=== PATIENT | female | born 1990 | race Caucasian/White ===

== ENCOUNTER 2019-10-31 15:14 | Emergency (ER) | payer OTHER, SELFPAY ==
--- NOTE | ~2019-10-31 | XR_ITS ---
EXAMINATION: XR chest 2V DATE: 10/31/2019 16:10 INDICATION: Mid chest pain. TECHNIQUE: Frontal and lateral views of the chest were obtained. COMPARISON: None. FINDINGS: The chest demonstrates clear lungs without pneumonia, pleural effusion, or pneumothorax. Th e heart size is normal. IMPRESSION: 1. No acute cardiopulmonary disease. Reviewed, dictated and finalized at location A. [employer]
[2019-10-31 15:23] VITALS: BP 99/70; PULSE 104; RESP 18; TEMP 37.2; O2SAT 100
[2019-10-31 15:27] VITALS: PULSE 99
--- NOTE | 2019-10-31 15:42 | ED.CHESTPAIN ---
HPI - Chest Pain General Chief Complaint: Chest Pain Stated Complaint: cold symptoms Time Seen by Provider: 10/31/19 15:41 Source: patient Mode of arrival: ambulatory Limitations: no limitations History of Present Illness HPI narrative: A 28 y/o female presents to the ED with c/o right sided CP. Pt states that on 10/29/19 she was diagnosed with Influenza B at an urgent care. She notes that she was prescribed Tamiflu and has been complaint with the medication since. Pt adds that last night she started to have the right sided CP, cough, and SOB. She reports that she was unable to sleep last night due to the right sided CP. Pt has been taking Ibuprofen for body aches as well. She has no other complaints at this time. MD complaint: chest pain (Right sided) Onset (ago): day(s) (1) Timing of current episode: constant Pain location: right chest Context: recent illness (Influenza B) Associated symptoms: dyspnea, cough and other (Body aches) Treatment prior to arrival: other (Tamiflu, Ibuprofen) Related Data Home Medications Medication Instructions Recorded Confirmed albuterol sulfate 1 puff INHALATION QID PRN 10/31/19 benzonatate 10/31/19 oseltamivir [Tamiflu] 10/31/19 10/31/19 Allergies Allergy/AdvReac Type Severity Reaction Status Date / Time No Known Allergies Allergy Verified 10/31/19 15:28 Review of Systems Review of Systems: All systems reviewed & are unremarkable except as noted in HPI and below Constitutional: Constitutional: Reports body ache(s) Cardiovascular: Cardiovascular: Reports chest pain (Right sided) Respiratory: Respiratory: Reports cough and Reports dyspnea PMFSH Past Medical History Medical History (Updated 11/01/19 @ 00:00 by Svitlana Ramos) Influenza B Surgical History Surgical History (Updated 10/31/19 @ 15:50 by Tomasa Douglas) No pertinent past surgical history Social History Social History (Updated 10/31/19 @ 15:50 by Tomasa Douglas) Smoking status: Unknown if ever smoked Gender identity (if verbalized by the patient): Female Exam Narrative: Exam Narrative: General appearance: Well-developed, well-nourished Skin: Normal color Head: Normocephalic, nontraumatic Eyes: Clear conjunctiva ENT: Oropharynx normal, ears normal, nose normal Neck: Supple, nontender Chest and respiratory: Airway patent, no respiratory distress, no accessory muscle use Heart: Regular rate/rhythm Vascular: Normal peripheral pulses, normal capillary refill. Musculoskeletal: Normal range of motion, nontender back Neurologic: Alert and oriented ?3, MEDICAL OFFICE REP is normal as tested, no gross motor deficit Course Course Emergency Course: Improving Vital Signs Vital signs: Vital Signs Temperature 37.2 C 10/31/19 15:23 Pulse Rate 104 H 10/31/19 15:23 Respiratory Rate 18 10/31/19 15:23 Blood Pressure 99/70 L 10/31/19 15:23 Pulse Oximetry 100 10/31/19 15:23 Temperature 37.2 C 10/31/19 15:23 Pulse Rate 102 H 10/31/19 17:29 Respiratory Rate 16 10/31/19 17:29 Blood Pressure 102/67 10/31/19 17:29 Pulse Oximetry 98 10/31/19 17:29 MDM - Chest Pain MDM Narrative Medical decision making narrative: Viral inducing myalgia is my concern. X-ray ordered to rule out any possibility of pneumonia, IV Toradol. Patient will be discharged to continue Tamiflu and to take ibuprofen 600 mg every 6 hours as needed, bedrest and and encourage fluid intake Differential Diagnosis Differential diagnosis: Likely chest pain (Chest wall muscular pain, pneumonia,) Imaging Data Radiologist's impression: ITS Impressions Chest X-Ray 10/31/19 16:14 IMPRESSION: 1. No acute cardiopulmonary disease.
[2019-10-31] MEDS: KETOROLAC 30 MG/ML VIAL (*BKC) IV PUSH (16:14)
[2019-10-31 17:29] VITALS: BP 102/67; PULSE 102; RESP 16; O2SAT 98
== END 2019-10-31 17:40 | disposition home or self-care (01) ==
LOC: ANHED 17:31
PROVIDERS: Emergency Provider Emergency Medicine
DX: J10.1 Influenza due to other identified influenza virus with other respiratory manifestations (principal); R07.9 Chest pain, unspecified
CPT/HCPCS: 71046; 96374; 99284; J1885

== ENCOUNTER 2020-10-03 06:55 | Outpatient (NON) | payer BC, SELFPAY ==
[2020-10-03 19:42] LABS: SARS-CoV-2 RNA PCR Positive
== END 2020-10-03 06:56 ==
PROVIDERS: PCP Family Medicine; Visit Provider Physician Assistant
DX: U07.1 COVID-19 (principal)
CPT/HCPCS: C9803; U0003

== ENCOUNTER → 2020-12-18 15:09 | Outpatient (CLI) | payer BC, SELFPAY ==
--- NOTE | ~2020-12-18 | XR_ITS ---
EXAMINATION: XR abdomen/kub 1V EXAM DATE: 12/18/2020 15:24 INDICATION: Low abdominal pain and low back pain, symptoms 2 weeks. TECHNIQUE: Frontal projection of the upper abdomen, frontal projection lower abdomen/pelvis for inter pretation. There is no prior study for comparison. FINDINGS: There is moderate amount of colonic stool and gas. No small bowel dilation, nonobstructiv e bowel gas pattern. There are no suspicious calcifications identified. There is no organomegaly suspected. The bones are unremarkable. IMPRESSION: Moderate amount of colonic stool. Reviewed, dictated and finalized at location A.
== END ==
PROVIDERS: PCP Family Medicine; Visit Provider Physician Assistant
DX: R10.9 Unspecified abdominal pain (principal)
CPT/HCPCS: 74018

== ENCOUNTER → 2021-05-31 05:18 | Outpatient (CLI) | payer BC, SELFPAY ==
[2021-05-31 19:18] LABS: SARS-CoV-2 RNA PCR Negative
== END ==
PROVIDERS: PCP Family Medicine; Visit Provider Physician Assistant
DX: R05 Cough (principal)
CPT/HCPCS: C9803; U0003; U0005

== ENCOUNTER 2022-10-02 15:22 | Outpatient (CLI) | payer BC, SELFPAY ==
[2022-10-02 16:15] LABS: Influenza A QL RT-PCR Negative (Negative); Influenza B QL RT-PCR Negative (Negative); RSV RNA, RT-PCR Negative (Negative); SARS-CoV-2 RNA PCR Positive
== END 2022-10-02 15:23 | disposition home or self-care (01) ==
LOC: ANHLAB 15:26
PROVIDERS: PCP Family Medicine; Visit Provider Physician Assistant
DX: U07.1 COVID-19 (principal)
CPT/HCPCS: 87637